=== PATIENT | male | born 1990 | race Two or more races ===

== ENCOUNTER 2017-03-01 07:10 | Emergency (ER) | payer SELFPAY ==
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
[2017-03-01 07:43] LABS: BASOPHIL # 0.1 K/uL (0.0-0.2); EOSINOPHIL # 0.1 K/uL (0.0-0.5); EOSINOPHIL % 1.7 %; HEMOGLOBIN 15.3 g/dL (12.0-17.0); IMMATURE GRANULOCYTE % 0.3 %; LYMPHOCYTE # 3.1 K/uL (0.8-4.0); LYMPHOCYTE % 43.1 %; MCH 31.2 pg (27.0-34.0); MCV 91.8 fl (83.0-98.0); MONOCYTE # 0.6 K/uL (0.0-1.0); MPV 9.1 fl (9.4-12.4); NEUTROPHIL # (ANC) 3.3 K/uL (1.4-9.0); NEUTROPHIL % 45.9 %; NRBC % 0 /100WBC (0-0.00); PLATELET COUNT 315 K/uL (150-450); RDW-CV 12.4 % (11.9-14.6); WBC 7.1 K/uL (4.0-11.0)
[2017-03-01 08:00] LABS: ALBUMIN 4.2 gm/dL (3.5-5.0); ALK PHOS 69 IU/L (33-138); ALT 35 IU/L (12-78); AST 28 IU/L (10-40); BLOOD UREA NITROGEN 11 mg/dL (6-24); CALCIUM 8.4 mg/dL (8.5-10.5); CHLORIDE 108 mMol/L (96-110); CO2 25 mMol/L (22-32); CREATININE 0.9 mg/dL (0.6-1.3); ESTIMATED GFR (MDRD EQUATION) > 60; SODIUM 142 mMol/L (135-145); TOTAL BILIRUBIN 0.2 mg/dL (0.0-1.5)
[2017-03-01 09:29] LABS: BILIRUBIN URINE NEGATIVE (NEGATIVE); BLOOD URINE NEGATIVE /UL (NEGATIVE); COLOR URINE STRAW (YELLOW); GLUCOSE URINE NEGATIVE (NEGATIVE); KETONE URINE NEGATIVE (NEGATIVE); LEUKOCYTES URINE NEGATIVE /UL (NEGATIVE); NITRITE URINE NEGATIVE (NEGATIVE); PROTEIN URINE NEGATIVE (NEGATIVE); TURBIDITY URINE CLEAR (CLEAR); UROBILINOGEN URINE NORMAL (NORMAL)
[2017-03-01 09:47] LABS: AMPHETAMINE NEGATIVE (NEGATIVE); BARBITURATE NEGATIVE (NEGATIVE); COCAINE NEGATIVE (NEGATIVE); OPIATES NEGATIVE (NEGATIVE)
== END 2017-03-01 13:35 | disposition disaster alternative care site (69) ==
LOC: GACC 07:10 → GMSU 12:57 → GACC 12:57
PROVIDERS: Family Medicine
PROC: 0HQ1XZZ Repair Face Skin, External Approach (ICD-10-PCS; principal; 2017-03-01)
PROC: 0T9B70Z Drainage of Bladder with Drainage Device, Via Natural or Artificial Opening (ICD-10-PCS; 2017-03-01)
DX: S01.112A Laceration without foreign body of left eyelid and periocular area, initial encounter (principal); S01.111A Laceration without foreign body of right eyelid and periocular area, initial encounter; S05.11XA Contusion of eyeball and orbital tissues, right eye, initial encounter; S00.81XA Abrasion of other part of head, initial encounter; S50.811A Abrasion of right forearm, initial encounter; S50.311A Abrasion of right elbow, initial encounter; S60.511A Abrasion of right hand, initial encounter; S40.812A Abrasion of left upper arm, initial encounter; Y09 Assault by unspecified means
CPT/HCPCS: G0480; J7030

== ENCOUNTER 2017-07-02 21:27 | Emergency (ER) | payer SELFPAY ==
--- NOTE | ~2017-07-02 | ER ---
PATIENT'S NAME: ELVA AVILA [facility] AGE: 26 Y [address] ROOM: [place] [address] LOCATION: [facility] ADMIT DATE: 07/02/2017 ER/Outpatient Report DISCHARGE DATE: 07/02/2017 FAMILY PHYSICIAN: PHYSICIAN, NO ATTENDING PHYSICIAN: Keanu Schulz Time of Evaluation: 2140 hours. HISTORY OF PRESENT ILLNESS: The patient is a 26-year-old male, who said last night he coughed and then he started to notice some pain in his right upper chest. He described it as what he thought was a pulled muscle. The patient denies any hemoptysis, shortness of breath, fever, or chills. The patient does smoke. ALLERGIES: NONE. HOME MEDICATIONS: He had taken some Excedrin earlier today. MEDICAL HISTORY: No chronic diseases. SURGERIES: None. SOCIAL HISTORY: Smoker a pack a day, has done for 6 to 7 years. Alcohol and occasional marijuana. REVIEW OF SYSTEMS: GENERAL: No fever or chills. HEENT: No recent headache or sore throat. RESPIRATORY: Denies shortness of breath. He has had a cough. No hemoptysis. Cough has not been productive. He has had pain in his chest wall in the right upper anterior chest. GASTROINTESTINAL: No weight loss. No change in bowel habits. MUSCULOSKELETAL: Denies any extremity pain or swelling. OBJECTIVE FINDINGS: VITAL SIGNS: He had a blood pressure 129/71, his temperature was 98.9, his respiratory rate 14, his pulse 67, his O2 saturations 96% on room air. GENERAL APPEARANCE: No obvious distress. Oriented x3. HEENT: He had normal- appearing sclerae. Buccal membranes were moist. NECK: There was no jugular venous distention. No presence of adenopathy. PATIENT'S NAME: ELVA AVILA [facility] AGE: 26 Y [address] ROOM: [place], [place] [address] LOCATION: [facility] ADMIT DATE: 07/02/2017 ER/Outpatient Report DISCHARGE DATE: 07/02/2017 FAMILY PHYSICIAN: PHYSICIAN, NO ATTENDING PHYSICIAN: Keanu Schulz CHEST: Exam of his right upper chest wall, it was tender to palpation. There was no crepitus noted. LUNGS: Breath sounds were present both in upper and lower lobes. HEART: Rhythm appeared regular. No murmurs or thrills noted. ABDOMEN: Firm but nontender. EXTREMITIES: No pedal edema. LABORATORY DATA AND X-RAYS: Chest x-ray, heart size appeared normal. There was no consolidation. No evidence of pneumo. ASSESSMENT: Right upper anterior chest wall pain. PLAN: Talked about use some ibuprofen for 3 days 600 to 800 mg 3 times a day. Follow up if he develops any shortness of breath, fever, cough becomes productive. Recommend that he stop smoking. MELISSA MENA FOR MD LYDIA RENO/azalia /[id number] d: 07/02/17 2356 t: 07/09/17 1217, OUTPATIENT REPORT
== END 2017-07-02 22:30 | disposition disaster alternative care site (69) ==
LOC: GMED 21:27
DX: R07.89 Other chest pain (principal); F17.210 Nicotine dependence, cigarettes, uncomplicated